=== PATIENT | male | born 1995 | race American Indian/Alaskan Native ===

== ENCOUNTER 2019-03-13 03:54 | Emergency (ER) | payer OTHER, MEDICAID ==
[2019-03-13 04:11] VITALS: BP 136/77
== END 2019-03-13 06:28 | disposition home or self-care (01) ==
LOC: ED 03:54
DX: M25.511 Pain in right shoulder (principal); M25.512 Pain in left shoulder; M25.572 Pain in left ankle and joints of left foot; F17.200 Nicotine dependence, unspecified, uncomplicated; F12.10 Cannabis abuse, uncomplicated; V49.59XA Passenger injured in collision with other motor vehicles in traffic accident, initial encounter; Y93.89 Activity, other specified; Y92.410 Unspecified street and highway as the place of occurrence of the external cause; Y99.8 Other external cause status